=== PATIENT | female | born 1970 | race Caucasian/White ===

== ENCOUNTER → 2023-11-19 | Outpatient (CLI) | payer MEDICAID ==
[2023-11-19 10:25] LABS: ALBUMIN 4.2 g/dL (3.5-5.0)
[2023-11-19 10:27] LABS: TOTAL PROTEIN 6.9 g/dL (6.4-8.3)
[2023-11-19 10:29] LABS: TOTAL BILIRUBIN 0.4 mg/dL (0.2-1.2)
[2023-11-19 10:33] LABS: DIRECT BILIRUBIN 0.2 mg/dL (0.0-0.5)
== END ==
LOC: LAB 10:01
PROVIDERS: Internal Medicine Gastroenterology
DX: K50.80 Crohn's disease of both small and large intestine without complications (principal)

== ENCOUNTER → 2023-11-20 | Outpatient (CLI) | payer MEDICAID | LOC: LAB 16:58 | DX: K50.80 Crohn's disease of both small and large intestine without complications (principal) ==

== ENCOUNTER → 2023-11-26 | Outpatient (CLI) | payer MEDICAID | LOC: LAB 09:06 | DX: K50.80 Crohn's disease of both small and large intestine without complications (principal) ==